=== PATIENT | male | born 1985 | race Caucasian/White ===

== ENCOUNTER → 2020-07-07 | Outpatient (CLI) | payer BC ==
[~2020-07-07] MED LIST: LEVOTHYROXINE137 MC1 PO; LISINOPRIL10 MG PO; TRAMADOL HCL50 MG PO; ZOLOFT50 MG PO
== END ==
LOC: MRI 13:43
DX: M54.12 Radiculopathy, cervical region (principal); M54.16 Radiculopathy, lumbar region; M51.27 Other intervertebral disc displacement, lumbosacral region; M48.061 Spinal stenosis, lumbar region without neurogenic claudication
CPT/HCPCS: 72141; 72148

== ENCOUNTER → 2020-09-15 | Outpatient (CLI) | payer BC, OTHER ==
[2020-09-15 11:52] LABS: RED BLOOD COUNT 5.29 M/UL (4.20-5.50); WHITE BLOOD COUNT 8.1 K/UL (4.5-11.0)
[2020-09-15 12:10] LABS: BUN/CREATININE RATIO 11 (0-10)
== END ==
LOC: OPSV2 10:30 → EDSTATUS 10:30 → OPSV2 10:39
PROVIDERS: Orthopaedic Surgery
DX: Z01.818 Encounter for other preprocedural examination (principal); M51.36 Other intervertebral disc degeneration, lumbar region; M54.16 Radiculopathy, lumbar region
CPT/HCPCS: 36415; 71046; 80048; 81001; 85027; 87081; 87086

== ENCOUNTER → 2020-09-20 | Outpatient (CLI) | payer BC, OTHER | LOC: LAB 14:27 | DX: M51.36 Other intervertebral disc degeneration, lumbar region (principal); M54.16 Radiculopathy, lumbar region; Z01.812 Encounter for preprocedural laboratory examination | CPT/HCPCS: 84520; 85610; 85730; 86850; 86900; 86901 ==

== ENCOUNTER 2020-09-21 06:19 | Inpatient (IN) | payer BC, OTHER ==
[~2020-09-21] VITALS: Ht 170.2 cm; Wt 89.0 kg
[2020-09-21] MEDS ORDERED: LISINOPRIL10 MG PO (06:51)
[2020-09-21] MEDS ORDERED: LEVOTHYROXINE137 MC1 PO (06:51)
[2020-09-21] MEDS ORDERED: ZOLOFT50 MG PO (06:51)
[2020-09-21] MEDS ORDERED: TRAMADOL HCL50 MG PO (06:51)
[2020-09-21 20:13] LABS: HEMOGLOBIN 15.1 gm/dl (14.0-17.5); RED BLOOD COUNT 4.72 M/UL (4.20-5.50); WHITE BLOOD COUNT 19.7 K/UL (4.5-11.0)
[2020-09-21 20:27] LABS: BUN/CREATININE RATIO 16 (0-10)
[2020-09-22 03:50] LABS: HEMOGLOBIN 13.6 gm/dl (14.0-17.5); RED BLOOD COUNT 4.35 M/UL (4.20-5.50)
[2020-09-22 04:02] LABS: BUN/CREATININE RATIO 14 (0-10)
[2020-09-23 12:00] LABS: HEMOGLOBIN 12.5 gm/dl (14.0-17.5); RED BLOOD COUNT 3.95 M/UL (4.20-5.50); WHITE BLOOD COUNT 11.2 K/UL (4.5-11.0)
[2020-09-23 12:22] LABS: BUN/CREATININE RATIO 15 (0-10)
== END 2020-09-24 12:34 | disposition home or self-care (01) | DRG 455 ==
LOC: OR 06:19 → M/S 20:43 → OR 20:44 → M/S 09-24 12:34
PROVIDERS: ADMIT Orthopaedic Surgery
PROC: 0SG0071 Fusion of Lumbar Vertebral Joint with Autologous Tissue Substitute, Posterior Approach, Posterior Column, Open Approach (ICD-10-PCS; principal; 2020-09-22)
PROC: 0SG00AJ Fusion of Lumbar Vertebral Joint with Interbody Fusion Device, Posterior Approach, Anterior Column, Open Approach (ICD-10-PCS; 2020-09-22)
PROC: 01NB0ZZ Release Lumbar Nerve, Open Approach (ICD-10-PCS; 2020-09-22)
PROC: 0ST40ZZ Resection of Lumbosacral Disc, Open Approach (ICD-10-PCS; 2020-09-22)
PROC: 0SG30AJ Fusion of Lumbosacral Joint with Interbody Fusion Device, Posterior Approach, Anterior Column, Open Approach (ICD-10-PCS; 2020-09-22)
DX: M51.16 Intervertebral disc disorders with radiculopathy, lumbar region (principal); M47.26 Other spondylosis with radiculopathy, lumbar region; M48.061 Spinal stenosis, lumbar region without neurogenic claudication; F41.9 Anxiety disorder, unspecified; E07.9 Disorder of thyroid, unspecified; I10 Essential (primary) hypertension; Z79.890 Hormone replacement therapy; Z79.899 Other long term (current) drug therapy; Z90.49 Acquired absence of other specified parts of digestive tract; Z82.5 Family history of asthma and other chronic lower respiratory diseases
CPT/HCPCS: 36415; 72100; 76000; 80048; 80053; 84520; 85027; 85610; 85730; 86850; 86900; 86901; 97110; 97116-GP-CQ; 97162; 97166; 97530; 97535; C1713; C1762; J0690; J1040; J1100; J1170; J2001; J2250; J2370; J2405; J2704; J2710; J3010; J3370; J7040; J7120